=== PATIENT | male | born 1945 | race Caucasian/White ===

== ENCOUNTER → 2018-07-05 | Outpatient (REF) | payer OTHER ==
[~2018-07-05] MED LIST: CARDURA XL8 MG OR; CIPRO500 MG OR; COLACE100 MG OR; HYDROCHLOROT12.5 M1 OR; HYTRIN5 MG OR; MOTRIN600 MG OR; OXYBUTYNIN5 MG OR; PREVACID30 M2 OR; PRILOSEC20 MG OR; PYRIDIUM200 MG OR; TRAMADOL HCL50 MG OR; VISTARIL 50MG C50 MG OR
== END | disposition home or self-care (01) | DRG 313 ==
LOC: DI 16:33
PROVIDERS: ATTEND Internal Medicine
DX: R07.9 Chest pain, unspecified (principal)